=== PATIENT | male | born 1940 | race Caucasian/White ===

== ENCOUNTER → 2016-06-18 | Outpatient (CLI) | payer MEDICARE, BC ==
[~2016-06-18] MED LIST: ALBUTEROL17 GM INH; AMLODIPINE BESYL5 MG PO; ASCORBIC ACID500 M2 PO; DEXAMETHASONE4 MG PO; DULCOLAX5 MG PO; EYE MULTIVITAMIN; FISH OIL 1,2001 CAP PO; HYDROCODON-ACE1 EAC7 PO; KLOR-CON 88 ME1 PO; LASIX20 MG PO; LIPITOR20 MG PO; LISINOPRIL; LISINOPRIL10 MG PO; LOPRESSOR PO; METOPROLOL SUCC25 MG PO; MULTI VITAMIN1 EACH PO; MULTI-VITAMIN W1 TA1 PO; OMEPRAZOLE40 M1 PO; SIMVASTATIN40 MG PO; SPIRIVA18 MCG; XARELTO15 MG PO; ZIOPTAN 0.00151 EACH OU; ZOCOR20 MG PO; ZOFRAN8 MG PO
--- NOTE | ~2016-06-18 | CT55 ---
[facility] A Service of [facility] RADIOLOGY TEXT RESULTS PATIENT: PENNIE GIFFORD [facility] UNIT #: [id number] AGE: [address]: Shyam Lin MD SEX: M ORDER DR: [id number] [facility] [address] [facility] [place] [facility]. [place], [place] [address] [id number] O MR#: [id number] Acc #: [id number] NAME: PENNIE GIFFORD : 1940 SEX: M STUDY DATE/TIME: 06/18/2016 9:48 UNIT: [facility] ROOM: STUDY DESCRIPTION: CT Chest W Con Attending Physician: Shyam Lin M.D. Referring Physician: Shyam Lin M.D. Ordering Physician: Shyam Lin M.D. Primary Care Physician: Erich Gore M.D. MEDICAL IMAGING REPORT This report is preliminary unless electronic signature is present EXAM CT of the chest with contrast. INDICATION Lung cancer. This is a follow up exam for surveillance for metastatic disease. Comparison made to prior study from December 20, 2015. TECHNIQUE Axial CT images were obtained from the thoracic inlet through the dome of the diaphragm following the administration of intravenous contrast material. This CT exam was performed with one or more of the following radiation dose reduction techniques: automatic exposure control, adjustment of mA and/or kV according to patient size, and iterative reconstruction. FINDINGS Dense consolidation is seen within the upper lobes bilaterally. Similar findings have been present on exams dating back to at least February of 2015 and really do not appear significantly changed. I do not see any new pulmonary nodules or masses. Extensive background emphysematous changes are present. There is a trace right pleural effusion which has been also present on prior examinations. Within the superior right hilar region, there is an area of consolidation measuring up to 2.1 x 1.9 cm which is stable when compared to an exam from July of 2015 when it measured 2.6 x 1.7 cm. Subcarinal node is also stable at 1.5 cm in short-axis dimensions. I certainly do not see any new suspicious adenopathy. Patient has an inferior vena cava filter. There is a right renal cyst. Areas of cortical thinning are seen within the left kidney, likely reflecting sequelae of prior insults. There is a small hiatal hernia. 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 I do not see any acute abnormalities within the upper abdomen to suggest metastatic disease to STS. [facility] A Service of [facility] & [facility] RADIOLOGY TEXT RESULTS PATIENT: PENNIE GIFFORD LOCATION: [facility] : 36 UNIT #: [id number] AGE: [address]: Shyam Lin MD SEX: M ORDER DR: the abdomen. No aggressive osseous abnormalities are seen IMPRESSION 1. I do not see any convincing evidence of current or residual disease of biapical consolidation which may reflect some fibrosis. It appears unchanged when compared to exams dating back to February 2015. There is also soft tissue density seen adjacent to the right coronary artery, which has also been present on prior exams and I think is probably stable. Prominent subcarinal node is unchanged when compared to the exam from July 2015. No new pulmonary nodules or masses are seen. 2. Patient has a trace right pleural effusion which has also been present on prior examinations. 3. No convincing evidence of metastatic disease to the upper abdomen. 4. Small hiatal hernia. Colonic lipoma. Dictated by... aSmmi Mcallister M.D. THIS IS AN ELECTRONICALLY VERIFIED REPORT Sammi Mcallister M.D. at 06/18/2016 4:44 PM AFF/tmw TD: 06/18/2016 16:18 JOB #: [id number] MEDICAL IMAGING REPORT COPY
[2016-06-19 09:34] LABS: POC - CREATININE 0.89 mg/dL (0.64-1.27); POC - GFR >60.0 mL/min (>60)
== END | disposition home or self-care (01) ==
LOC: CCAT 08:54
PROVIDERS: Radiology Radiation Oncology
DX: Z08 Encounter for follow-up examination after completed treatment for malignant neoplasm (principal); K44.9 Diaphragmatic hernia without obstruction or gangrene; D17.5 Benign lipomatous neoplasm of intra-abdominal organs; Z85.118 Personal history of other malignant neoplasm of bronchus and lung
CPT/HCPCS: 71260; 82565; Q9967